=== PATIENT | female | born 1940 | race Two or more races ===

== ENCOUNTER 2025-03-08 23:05 | Emergency (ER) | payer OTHER ==
[~2025-03-08] VITALS: Ht 154.9 cm; Wt 68.0 kg
[2025-03-08] MEDS ORDERED: KEPPRA100 MG/1 M (23:33)
[2025-03-08] MEDS ORDERED: METFORMIN HCL500 M3 (23:33)
[2025-03-08] MEDS ORDERED: ZOLOFT20 MG/1 ML (23:33)
[2025-03-08] MEDS ORDERED: ZESTRIL2.5 MG (23:33)
[2025-03-08] MEDS ORDERED: TOPROL XL25 M1 (23:34)
[2025-03-08] MEDS ORDERED: LIPITOR40 M1 (23:34)
[2025-03-08] MEDS ORDERED: CLONAZEPAM0.5 M1 (23:34)
[2025-03-08] MEDS ORDERED: PROTONIX20 MG (23:34)
[2025-03-08] MEDS ORDERED: PLAVIX75 MG (23:35)
[2025-03-08] MEDS ORDERED: VAZALORE81 MG (23:35)
== END 2025-03-09 03:16 ==
LOC: ER 23:37
DX: S09.8XXA Other specified injuries of head, initial encounter (principal); S59.909A Unspecified injury of unspecified elbow, initial encounter; W19.XXXA Unspecified fall, initial encounter; Y93.89 Activity, other specified; Y92.091 Bathroom in other non-institutional residence as the place of occurrence of the external cause; Y99.8 Other external cause status; I10 Essential (primary) hypertension